=== PATIENT | female | born 1970 | race Caucasian/White ===

== ENCOUNTER → 2021-02-09 09:01 | Outpatient (CLI) | payer OTHER, SELFPAY ==
--- NOTE | ~2021-02-09 | MM_ITS ---
EXAMINATION: MM screening ace BI w jaymie HISTORY: Screening mammogram TECHNIQUE: Craniocaudal and mediolateral oblique 3-D tomosynthesis images were obtained and synthetic 2-D images were generated. CAD analysis was submitted and interpreted. COMPARISON: 10/15/2019, 07/09/2018, 04/06/2017 bilateral digital screening mammogram examinations BREAST PARENCHYMAL COMPOSITION: The breasts are almost entirely fatty. FINDINGS: There is no evidence of suspicious mass, calcification, or architectural distortion to sugg est malignancy in either breast. There has been no suspicious interval change. IMPRESSION: 1. No mammographic evidence of malignancy. 2. Recommend routine screening mammography in one year. BI-RADS Category 1: Negative Reviewed, dictated and finalized at location A.
== END ==
DX: Z12.31 Encounter for screening mammogram for malignant neoplasm of breast (principal)
CPT/HCPCS: 77063; 77067

== ENCOUNTER → 2022-02-15 10:44 | Outpatient (CLI) | payer OTHER, SELFPAY ==
--- NOTE | ~2022-02-15 | MM_ITS ---
EXAMINATION: MM screening ace BI w jaymie HISTORY: Screening mammogram TECHNIQUE: Craniocaudal and mediolateral oblique 3-D tomosynthesis images were obtained and synthetic 2-D images were generated. CAD analysis was submitted and interpreted. COMPARISON: 02/05/2021, 10/15/2019, 07/09/2018 bilateral screening mammogram examinations BREAST PARENCHYMAL COMPOSITION: The breasts are almost entirely fatty. FINDINGS: There is no evidence of suspicious mass, calcification, or architectural distortion to sugg est malignancy in either breast. There has been no suspicious interval change. IMPRESSION: 1. No mammographic evidence of malignancy. 2. Recommend routine screening mammography in one year. BI-RADS Category 1: Negative Reviewed, dictated and finalized at location A.
== END ==
PROVIDERS: PCP Family Medicine
DX: Z12.31 Encounter for screening mammogram for malignant neoplasm of breast (principal)
CPT/HCPCS: 77063; 77067

== ENCOUNTER → 2023-08-03 15:05 | Outpatient (CLI) | payer BC, SELFPAY ==
--- NOTE | ~2023-08-03 | MM_ITS ---
EXAMINATION: MM screening ace BI w jaymie HISTORY: Screening mammogram TECHNIQUE: Craniocaudal and mediolateral oblique 3-D tomosynthesis images were obtained and synthetic 2-D images were generated. CAD analysis was submitted and interpreted. COMPARISON: 02/15/2022, 02/09/2021, 10/15/2019 BREAST PARENCHYMAL COMPOSITION:The breasts are almost entirely fatty FINDINGS: No suspicious mass, calcification, or architectural distortion are identified in either gerardo ast to suggest malignancy. There has been no suspicious interval change. IMPRESSION: No mammographic evidence of malignancy. Recommend routine screening mammography in one year. BI-RADS Category 1: Negative Reviewed, dictated and finalized at location .
== END ==
DX: Z12.31 Encounter for screening mammogram for malignant neoplasm of breast (principal)
CPT/HCPCS: 77063; 77067

== ENCOUNTER 2024-08-08 15:06 | Outpatient (CLI) | payer BC, SELFPAY ==
--- NOTE | ~2024-08-08 | MM_ITS ---
EXAMINATION: MM screening ace BI w jaymie HISTORY: Screening TECHNIQUE: Craniocaudal and mediolateral oblique 3-D tomosynthesis images were obtained and synthetic 2-D images were generated. CAD analysis was submitted and interpreted. COMPARISON: Comparison to multiple prior studies sequentially, with oldest reviewed study dated 04/06. BREAST PARENCHYMAL COMPOSITION: . Not Dense: The breasts are almost entirely fatty. FINDINGS: There is no evidence of suspicious mass, calcification, or architectural distortion to sugg est malignancy in either breast. There has been no suspicious interval change. IMPRESSION: 1. No mammographic evidence of malignancy. 2. Recommend routine screening mammography in one year. BI-RADS Category 1: Negative Reviewed, dictated and finalized at location B.
== END 2024-08-08 15:07 | disposition home or self-care (01) ==
DX: Z12.31 Encounter for screening mammogram for malignant neoplasm of breast (principal)
CPT/HCPCS: 77063; 77067

== ENCOUNTER 2025-10-16 08:06 | Emergency (ER) | payer BC, SELFPAY ==
--- OUTSIDE RECORDS SUMMARY | 2025-10-16 08:12 | XMS_ITS | Clinical Summary ---
Author Organization [facility] Address [address] [place] [address] Care Team Providers Care Biostatistics Manager Name Role Phone Jaye Sahu MD Primary Care Provider [phone] Source Comments [facility],non-owned Affiliates and Associated Physician Practices is amultiple site organization consisting of ambulatory clinics and hospital sitesin [place], [place], [place] and [place]. This disclosure is being madepursuant to the Care Everywhere program and may not contain all information available regarding this patient. Last updated 18.[facility] Allergies No known active allergies Medications * Be aware that medications may not be up to date on this document. Alwaysverify current medications with the patient. Levonorgestrel-E thinyl Estrad (NORDETTE PO) 1 Tab once daily. No placebo pills except once a year Active methylPREDNISolo ne (MEDROL DOSEPAK) 4 MG tabletIndication s:Acute bronchitis, unspecified organism,Mild intermittent asthma, unspecified whether complicated (HCC) Take by mouth as directed 1 Each 7 Active Additional Information Patient not taking.Reported on 01/06/2019 benzonatate (TESSALON) 200 MG capsuleIndicatio ns:Acute bronchitis, unspecified organism Take 1 capsule by mouth 3 times daily as needed for Cough 30 capsule 7 Active Additional Information Patient not taking.Reported on 01/06/2019 albuterol HFA (PROVENTIL;TANVI ADRIANA;PROAIR) 108 (90 Base) MCG/ACT inhalerIndicatio ns:Medication refill Inhale 2 puffs by mouth every 6 hours as needed 1 Inhaler 9 Active Additional Information Patient not taking.Reported on 07/07/2019 phenazopyridine (PYRIDIUM) 200 MG tablet Take 1 tablet by mouth 3 times daily as needed 9 tablet 9 Active Active Problems Problem Noted Date Diagnosed Date Allergic rhinitis 01/06/2019 S/P laparoscopic cholecystectomy 12/16/2012 Alopecia 06/09/2002 Morbid obesity Family History Medical History Relation Name Comments Crohn's Disease Sister Relation Name Status Comments Sister Social History Tobacco Use Types Packs/Day Years Used Date Smoking Tobacco: Never Smokeless Tobacco: Never Comments No Sex and Gender Information Value Date Recorded Sex Assigned at Not on file Legal Sex Female 8:53 AM DIRECTOR OF ADULT EPILEPSY Gender Identity Not on file Sexual Orientation Not on file Last Filed Vital Signs Vital Sign Reading Time Taken Comments Blood Pressure 134/86 07/07/2019 12:10 PM CDT Pulse 133 07/07/2019 12:10 PM CDT Temperature 36.6 C (97.8 F) 07/07/2019 12:10 PM CDT Respiratory Rate 18 07/07/2019 12:10 PM CDT Oxygen Saturation 98% 07/07/2019 12:10 PM CDT Inhaled Oxygen Concentration - - Weight 111.1 kg (245 lb) 07/07/2019 12:10 PM CDT Height 165.1 cm (5' 5) 07/07/2019 12:10 PM CDT Body Mass Index 40.77 07/07/2019 12:10 PM CDT Plan of Treatment Health Maintenance Due Date Last Done Comments COLOGUARD (AGES 45-75) - COL ON CA SCREENING 1969 COLON MONITORING 1969 COLONOSCOPY - COLON CA SCREENING 1969 CT COLONOGRAPHY - COLON CA SCREENING 1969 Colorectal Cancer Screening 1969 FIT - COLON CA SCREENING 1969 FLEX SIG - COLON CA SCREENING 1969 MAMMOGRAM 1969 HIV SCREENING 1984 HEPATITIS C SCREENING 12/27/1987 DTAP/TDAP/TD VACCINES (1 - Tdap) 1988 HEPATITIS B VACCINE (1 of 3 - 19+ 3-dose series) 1988 LIPID TESTING 12/07/2017 12/07/2012 SCREENING FOR DIABETES 01/06/2019 3, 12/07/2012 PNEUMOCOCCAL VACCINE 50+ (1 of 1 - PCV) 01/01/2020 ZOSTER VACCINE (1 of 2) 01/01/2020 DEPRESSION SCREENING 10/19/2024 COVID-19 VACCINE (2024-2 6 season) 2025 INFLUENZA VACCINE (#1) 2025 HIB VACCINE Aged Out No longer eligi ble based on patient's age to complete this topic HPV VACCINE Aged Out No longer eligi ble based on patient's age to complete this topic MENINGOCOCCAL (Group B) VACCINE SHARED DECISION-MAKING Aged Out No longer eligible based on patient's age to complete this topic MENINGOCOCCAL GROUPS A/C/Y/W VACCINE Aged Out No longer eligible b ased on patient's age to complete this topic Procedures Procedure Name Priority Date/Time Associated Diagnosis Comments COMPREHENSIVE METABOLIC PANEL Routine 01/06/2013 5:30 PM CDT Morbid obesity [ICD-9-CM] LIPID PROFILE Routine 12/07/2012 9:05 AM DIRECTOR OF ADULT EPILEPSY from Last 3 Months or Most Recently Relevant to Health Maintenance Results * (ABNORMAL) COMPREHENSIVE METABOLIC PANEL (01/06/2013 5:30 PM CDT) Glucose 149(H) 74 - 106 mg/dL 01/06/2013 7:26 PM CDT [facility] Sodium 140 136 - 145 mmol/L 01/06/2013 7:26 PM CDT [facility] Potassium 3.8 3.5 - 5.1 mmol/L 01/06/2013 7:26 PM CDT [facility] Chloride 105 98 - 107 mmol/L 01/06/2013 7:26 PM CDT [facility] CO2 24 22 - 31 mmol/L 01/06/2013 7:26 PM CDT [facility] Calcium 9.1 8.5 - 10.1 mg/dL 01/06/2013 7:26 PM CDT [facility] Anion Gap 11 5 - 15 mmol/L 01/06/2013 7:26 PM CDT [facility] BUN 11 7 - 21 mg/dL 01/06/2013 7:26 PM CDT [facility] Creatinine 0.82 0.50 - 1.30 mg/dL 01/06/2013 7:26 PM CDT [facility] eGFR by MDRD >60 >60 ml/min/1.7 3m2 01/06/2013 7:26 PM T [facility] eGFR by MDRD >60 >60 ml/min/1.7 3m2 01/06/2013 7:26 PM CDT [facility] Alkaline Phosphatase 91 38 - 126 U/L 01/06/2013 7:26 PM T [facility] ALT 26 12 - 78 U/L 01/06/2013 7:26 PM T [facility] AST 8 5 - 40 U/L 01/06/2013 7:26 PM CDT [facility] Protein Total 6.6 6.4 - 8.2 gm/dL 01/06/2013 7:26 PM T [facility] Albumin 3.9 3.4 - 5.0 gm/dL 01/06/2013 7:26 PM T [facility] Bilirubin Total 0.4 0.2 - 1.0 mg/dL 01/06/2013 7:26 PM T [facility] Blood specimen (specimen) BLOOD SPECIMEN / Unknown 01/06/2013 5:30 PM CDT 01/06/2013 6:49 PM CDT Leisa Valiente MD LAB - CHEMISTRY ORDERABLE S Final Result [facility] [address] [place] [address] * (ABNORMAL) LIPID PROFILE (12/07/2012 9:05 AM DIRECTOR OF ADULT EPILEPSY) Cholesterol 240(H) <200 mg/dL [facility] Triglycerides 185 10 - 210 mg/dL [facility] HDL Cholesterol 50 >40 mg/dL [facility] LDL Calculated 153 mg/dL [facility] Chol HDL Ratio 4.80 [facility] Comment Lipid [facility] Comment: Risk Classification HDL CHOL LDL CHOL TOTAL CHOL According to NCEP (mg/dl) (mg/dL) (mg/dl) Desirable >40 <130 < 200 Borderline/High - 130-159 200-239 High - >159 > 239 The total cholesterol to HDL cholesterol ratio may be used to predict risk for coronary heart disease in untreated patients according to data reported from the [place] Study by Anson Bautista M.D. The predictive value in patients over 60 years of age is uncertain. Risk TOTAL CHOL/HDL RATIO MEN WOMEN 1/2 Average 3.43 3.27 Average 4.97 4.44 2X Average 9.55 7.05 3X Average 23.39 11.04 In Coronary Artery Disease patients, in whom nonpharmacological therapy has failed, the AHA recommends that drug therapy should be prescribed to lower LDL cholesterol to <100mg/dL. Drug therapy may be instituted in patients with HDL <35mg/dL. The reported LDL is a calculated result. For a more precise measurement, a direct LDL test is available, as necessary. BLOOD SPECIMEN / Unknown 12/07/2012 9:05 AM DIRECTOR OF ADULT EPILEPSY 12/07/2012 9:42 AM DIRECTOR OF ADULT EPILEPSY us Rhoda Lubin MD LAB - CHEMISTRY ORDERABLES Fin al Result Performing Organization Address City/State/[facility] Co de Phone Number [facility] [address] [place] [address] from Last 3 Months or Most Recently Relevant to Health Maintenance Insurance Care Teams Biostatistics Manager Relationship Specialty Start Date End Date Jaye Sahu MD [address] [place] [address] PCP - General Endocrinology 12/20/12
--- OUTSIDE RECORDS SUMMARY | 2025-10-16 08:12 | XMS_ITS | Clinical Summary ---
Author Organization [facility] Address [address] [place] [address] Care Team Providers Care Vending Machine Collector Name Role Phone Meera Naylor Primary Care Provider [phone] Allergies No known active allergies Medications levonorgestrel- ethinyl estradiol 0.1-20 MG-MCG tablet 1 tablet daily. Acti ve meclizine 12.5 MG tablet Take 12.5 mg by mouth 3 (three) times daily as needed. Active clobetasol 0.05 % ointment APPLY THIN LAYER EXTERNALLY TO THE AFFECTED AREA TWICE DAILY 1 Active albuterol sulfate HFA 108 (90 Base) MCG/ACT inhalerIndicati ons:Acute recurrent maxillary sinusitis Inhale 2 puffs into the lungs every 6 (six) hours as needed. 8 g 3 1 Active budesonide-form oterol (SYMBICORT) 160-4.5 MCG/ACT inhalerIndicati ons:COVID-19 virus infection Inhale 2 puffs into the lungs 2 (two) times daily. 10.2 g 2 Active Active Problems Problem Noted Date Diagnosed Date Mild intermittent asthma without complication Allergic rhinitis 01/06/2019 S/P laparoscopic cholecystectomy 12/16/2012 Encounters Date Type Department Care Team Description 08/09/2025 Scan [facility] Scanned, [facility] from Last 3 Months Immunizations Immunization Administration Dates Next Due PFIZER COVID-19 (ORIGINAL FO RMULATION, PURPLE CAP) mRNA, LNP-S, PF, 30 MCG/0.3 ML DOSE 12/20/2020,11/29/2020 Tdap (Historical Only-select from magnify glass) 03/08/2020 Family History Medical History Relation Comments Heart Disease Father Hypertension Father Arthritis Mother Relation Status Comments Father Mother Social History Tobacco Use Types Packs/Day Years Used Date Smoking Tobacco: Never Smokeless Tobacco: Never Tobacco Cessation:Counseling Given: No Comments No Sex and Gender Information Value Date Recorded Sex Assigned at Not on file Legal Sex Female 3:47 PM CDT Gender Identity Not on file Sexual Orientation Not on file Last Filed Vital Signs Vital Sign Reading Time Taken Comments Blood Pressure 126/84 01/01/2021 2:38 PM CDT Pulse 108 01/01/2021 2:38 PM CDT Temperature 36.7 C (98 F) 01/01/2021 2:38 PM CDT Respiratory Rate 17 01/01/2021 2:38 PM CDT Oxygen Saturation 97% 01/01/2021 2:38 PM CDT Inhaled Oxygen Concentration - - Weight 126.3 kg (278 lb 6.4 oz) 01/01/2021 2:38 PM CDT Height 165.1 cm (5' 5) 03/08/2020 8:27 AM CDT Body Mass Index 46.33 03/08/2020 8:27 AM CDT Plan of Treatment Health Maintenance Due Date Last Done Comments Cervical Cancer Screening Pa p Smear (Age 30 to 64) Every 3 Years 1969 Hepatitis C 01/01/1988 Hepatitis B Vaccines (1 of 3 - 19+ 3-dose series) 1988 Pneumococcal Vaccine: 50+ Years (1 of 2 - PCV) 1988 Cervical Cancer Screening Pa p with HPV Testing (Age 30 to 64) Every 5 Years 01/01/2000 Cervical Cancer Screening wi th HPV 01/01/2000 Zoster Vaccines (1 of 2) 01/01/2020 Annual Physical 03/08/2021 03/08/2020 Mammogram Screening 02/16/2024 02/15/2022, 02/09/2021 PHQ-2 (Physician Chitina) 10/19/2024 COVID-19 Vaccine (2024-2 6 season) 2025 06/21/2021, 12/20/2020, 11/29/2020 Influenza Adult (#1) 2025 Colorectal Cancer Screening FIT-DNA (3 Years) 07/16/2027 07/16/2024, 03/31/2020 DTaP, Tdap and Td Vaccines ( 2 - Td or Tdap) 03/08/2030 03/08/2020 Hepatitis A Vaccines Aged Out No long er eligible based on patient's age to complete this topic Meningococcal B Vaccine Aged Out No l onger eligible based on patient's age to complete this topic Meningococcal Vaccine Aged Out No akua quin[place] eligible based on patient's age to complete this topic RSV Immunizations Under 20 Months Aged Out No longer eligible b ased on patient's age to complete this topic Procedures Procedure Name Priority Date/Time Associated Diagnosis Comments COLOGUARD (EXACT SCIENCE) Routine 07/16/2024 10:40 AM CDT Screening for colon cancer MAMMOGRAM GENERIC (SCAN ORDER) 02/15/2022 from Last 3 Months or Most Recently Relevant to Health Maintenance Results * COLOGUARD (EXACT SCIENCE) (07/16/2024 10:40 AM CDT) COLOGUARD RESULT Negative Negative [facility] (CLIA #:[id number]) Comment: NEGATIVE TEST RESULT. A negative Cologuard result indicates a low likelihood that a colorectal cancer (CRC) or advanced adenoma (adenomatous polyps with more advanced pre-malignant features) is present. The chance that a person with a negative Cologuard test has a colorectal cancer is less than 1 in 1500 (negative predictive value >99.9%) or has an advanced adenoma is less than 5.3% (negative predictive value 94.7%). These data are based on a prospective cross-sectional study of 10,000 individuals at average risk for colorectal cancer who were screened with both Cologuard and colonoscopy. (Lily Delgado al, N Engl J Med 2014;370(14):8400-8808) The normal value (reference range) for this assay is negative. COLOGUARD RE-SCREENING RECOMMENDATION: Periodic colorectal cancer screening is an important part of preventive healthcare for asymptomatic individuals at average risk for colorectal cancer. Following a negative Cologuard result, the [place] [employer] and U.S. Multi-Society Task Force screening guidelines recommend a Cologuard re-screening interval of 3 years. References: [place] [employer] Guideline for Colorectal Cancer Screening: https://www.cancer.org/cancer/tndyq-hwadee-wyilmf/dastyvaaw-aiblkzbjd-sepdltn/ac s-rec ommendations.html.; Devin DK, Noe GIRALDO, Tiana ELDRIDGE, Colorectal Cancer Screening: Recommendations for Physicians and Patients from the U.S. Multi-Society Task Force on Colorectal Cancer Screening , Am J Gastroenterology 2017; 112:5825-1945. TEST DESCRIPTION: Composite algorithmic analysis of stool DNA-biomarkers with hemoglobin immunoassay. Quantitative values of individual biomarkers are not reportable and are not associated with individual biomarker result reference ranges. Cologuard is intended for colorectal cancer screening of adults of either sex, 45 years or older, who are at average-risk for colorectal cancer (CRC). Cologuard has been approved for use by the U.S. FDA. The performance of Cologuard was established in a cross sectional study of average-risk adults aged 50-84. Cologuard performance in patients ages 45 to 49 years was estimated by sub-group analysis of near-age groups. Colonoscopies performed for a positive result may find as the most clinically significant lesion: colorectal cancer [4.0%], advanced adenoma (including sessile serrated polyps greater than or equal to 1cm diameter) [20%] or non- advanced adenoma [31%]; or no colorectal neoplasia [45%]. These estimates are derived from a prospective cross-sectional screening study of 10,000 individuals at average risk for colorectal cancer who were screened with both Cologuard and colonoscopy. (Lily Delgado al, N Engl J Med 2014;370(14):8053-2682.) Cologuard may produce a false negative or false positive result (no colorectal cancer or precancerous polyp present at colonoscopy follow up). A negative Cologuard test result does not guarantee the absence of CRC or advanced adenoma (pre-cancer). The current Cologuard screening interval is every 3 years. ([place] [employer] and U.S. Multi-Society Task Force). Cologuard performance data in a 10,000 patient pivotal study using colonoscopy as the reference method can be accessed at the following location: www.exactlabs.com/results. Additional description of the Cologuard test process, warnings and precautions can be found at www.cologuard.com. STOOL STOOL SPECIMEN / Unknown 07/16/2024 10:40 AM CDT 07/17/2024 5:50 PM CDT Meera Naylor DO BODY FLUIDS AND STOOLS ORDERA BLES Final Result [employer] [facility] [address] [place] [address], [employer] (CLIA #:[id number]) [address] [place] [address] * MAMMOGRAM GENERIC (02/15/2022) Anatomical Region Laterality Modality Other 02/15/2022 Narrative 02/15/2022 Ordered by an unspecified provider. us Documents Scanned SCANNING Final Result from Last 3 Months or Most Recently Relevant to Health Maintenance Insurance [facility] Care Teams Vending Machine Collector Relationship Specialty Start Date End Date Meera Naylor DO [address] [place] [address] PCP - General FAMILY PRACTICE 03/08/20
--- OUTSIDE RECORDS SUMMARY | 2025-10-16 08:12 | XMS_ITS | Clinical Summary ---
Author Organization [address] Address [address] [place] [id number] Care Team Providers Care Fibrous Plasterer Name Role Phone No, Physician Primary Care Provider [phone] Allergies No known active allergies Medications levonorgestreL- ethinyl estrad (LEVORA) 0.15-0.03 mg per tablet 1 tablet daily Acti ve albuterol HFA (PROVENTIL HFA,VENTOLIN HFA,PROAIR HFA) 90 mcg/actuation inhaler Inhale 2 puffs every 6 (six) hours as needed 9 Active predniSONE (DELTASONE) 10 mg tablet Take 5 tabs (50mg) daily for 2 days, then take 4 tabs (40mg) daily for 2 days. Continue to decrease by 1 tab (10mg) every 2 days until gone. 30 tablet 3 Active albuterol HFA (PROVENTIL HFA,VENTOLIN HFA,PROAIR HFA) 90 mcg/actuation inhaler Inhale 2 puffs every 6 (six) hours as needed for wheezing or shortness of breath 1 each 3 Active Active Problems No known active problems Social History Tobacco Use Types Packs/Day Years Used Date Smoking Tobacco: Never Assessed Comments No Sex and Gender Information Value Date Recorded Sex Assigned at Not on file Legal Sex Female 3:27 PM LEGAL RECEPTIONIST Gender Identity Not on file Sexual Orientation Not on file Last Filed Vital Signs Vital Sign Reading Time Taken Comments Blood Pressure 136/84 09/17/2023 11:06 AM LEGAL RECEPTIONIST Pulse 93 09/17/2023 11:06 AM LEGAL RECEPTIONIST Temperature 36.8 C (98.2 F) 09/17/2023 11:06 AM LEGAL RECEPTIONIST Respiratory Rate 16 09/17/2023 11:06 AM LEGAL RECEPTIONIST Oxygen Saturation 99% 09/17/2023 11:06 AM LEGAL RECEPTIONIST Inhaled Oxygen Concentration - - Weight 113.4 kg (250 lb) 09/17/2023 11:06 AM LEGAL RECEPTIONIST Height 165.1 cm (5' 5) 09/17/2023 11:06 AM LEGAL RECEPTIONIST Body Mass Index 41.6 09/17/2023 11:06 AM LEGAL RECEPTIONIST Plan of Treatment Health Maintenance Due Date Last Done Comments Breast Cancer Screening-Mammogram 1969 Cervical Cancer Screening 1969 Colon Cancer Screening-Colonoscopy 1969 Depression Screening 1969 Hepatitis C Screening 1969 Hepatitis B Screening 01/01/1988 Regular Well Visit/Exam 18-64 01/01/1988 Pneumococcal vaccine <65 (1 of 2 - PCV) 1988 Zoster Vaccine (1 of 2) 01/01/2020 Covid-19 Vaccine (5 - 2024-2 6 season) 2025 08/21/2022, 06/21/2021, 12/20/2020, Additional history exists Influenza Vaccine (#1) 2025 DTaP/Tdap/Td Vaccine (2 - Td or Tdap) 03/08/2030 03/08/2020 Insurance [employer] [facility] Care Teams Fibrous Plasterer Relationship Specialty Start Date End Date No, Physician PCP - General 04/07/23
--- OUTSIDE RECORDS SUMMARY | 2025-10-16 08:12 | XMS_ITS | Encounter Summary ---
Author Organization [facility] Health Address [address] [place] [address] Care Team Providers Care Hostage Negotiator Name Role Phone Jaye Sahu MD Primary Care Provider [phone] Encounter Details Date Type Department Care Team (Late st Contact Info) Description 12/07/2012 [facility] Outpatient Visit [facility] [address] [facility] [place], [place] [id number] Jameel Lubin MD [address] [place] [address] Social History Tobacco Use Types Packs/Day Years Used Date Smoking Tobacco: Never Assessed Comments Unknown Sex and Gender Information Value Date Recorded Sex Assigned at Not on file Legal Sex Female 8:53 AM NASCAR PIT CREW PERSON Gender Identity Not on file Sexual Orientation Not on file documented as of this encounter Plan of Treatment Not on file documented as of this encounter Visit Diagnoses Not on filedocumented in this encounter Care Teams Hostage Negotiator Relationship Specialty Start Date End Date Jaye Sahu MD [address] [place] [id number] PCP - General Endocrinology 12/20/12 documented as of this encounter
--- OUTSIDE RECORDS SUMMARY | 2025-10-16 08:12 | XMS_ITS | Encounter Summary ---
Author Organization [facility] Address [address] [place] [address] Care Team Providers Care Log Cooker Name Role Phone Meera Naylor DO Primary Care Provider [phone] Encounter Details Date Type Department Care Team (Late st Contact Info) Description 03/06/2025 MyChart Message Enc [facility] Family Medicine - [place] [address], [address] [place] [id number] Meera Naylor DO [address] [place], [place] [phone] Schedule an Appointment Social History Tobacco Use Types Packs/Day Years [...] on filedocumented in this encounter Care Teams Log Cooker Relationship Specialty Start Date End Date Meera Naylor DO [address] [place], [place] [phone] PCP - General FAMILY PRACTICE 03/08/20 documented as of this encounter
--- OUTSIDE RECORDS SUMMARY | 2025-10-16 08:12 | XMS_ITS | Encounter Summary ---
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 Name Role Phone Unavailable Primary Care Provider Unavailabl e Encounter Details Date Type Department Care Team (Late st Contact Info) Description 10/17/2022 Lab Requisition [facility] [address] [place] [address] Immanuel Rice MD [address] [place] [address] [address] [place] [address] Encounter for screening for COVID-19 Social History Tobacco Use Types Packs/Day Years Used Date Smoking Tobacco: Never Assessed Comments Unknown Sex and Gender Information Value Date Recorded Sex Assigned at Not on file Legal Sex Female 1:00 PM PROGRAM ARCHITECT Gender Identity Not on file Sexual Orientation Not on file documented as of this encounter Plan of Treatment Not on file documented as of this encounter Procedures Procedure Name Priority Date/Time Associated Diagnosis Comments SARS-COV-2 BY MOLECULAR Routine 10/17/2022 10:25 AM PROGRAM ARCHITECT Encounter for screening for COVID-19 documented in this encounter Results * SARS-COV-2 BY MOLECULAR (10/17/2022 10:25 AM PROGRAM ARCHITECT) SARSCOV2 NOT DETECTED (Referen ce Range for this test is Not Detected ) [facility] THERMOFISHER FAST DX 10/18/2022 11:09 PM PROGRAM ARCHITECT [facility] Comment:This test was perfor med by a RT-PCR method. Other Non-Phlebotomy Collection / Unknown 10/17/2022 10:25 AM PROGRAM ARCHITECT 10/17/2022 4:03 PM PROGRAM ARCHITECT Narrative [facility] - 10/18/2022 11:09 PM PROGRAM ARCHITECT Authorized Fact Sheets about this test for providers and patients are available at: https://www.fda.gov/medical-devices/anftsoisx-tdsjdqvvit-gmjonnn-devices/emergen cy-us e-authorizations us Immanuel Rice MD MICROBIOLOGY - GENERAL ORDERAB LES Final Result [facility] [address] [place] [address], [place] documented in this encounter Visit Diagnoses Diagnosis Encounter for screening for COVID-19 documented in this encounter Additional Health Concerns Infection Onset Date Last Indicated Resolved Time COVID - 19 10/17/2022 10/23/2022 11/02/2022 12:1 7 AM PROGRAM ARCHITECT documented as of this encounter
--- OUTSIDE RECORDS SUMMARY | 2025-10-16 08:12 | XMS_ITS | Clinical Summary ---
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 Gender Identity Not on file Sexual Orientation Not on file Plan of Treatment Health Maintenance Due Date Last Done Comments Hepatitis C Virus (HCV) Screening 1969 Hepatitis B Immunization (1 of 3 - 19+ 3-dose series) 1988 Pap Smear 1990 Cervical Cancer Screening (CCS) 01/01/2000 HPV/Cotest 01/01/2000 Cologuard 2014 Colonoscopy 2014 Colorectal Cancer Screening 2014 Immunochemical Fecal Occult Blood 2014 Pneumococcal Immunization (5 0+ years) (1 of 1 - PCV) 01/01/2020 Zoster Immunization (1 of 2) 01/01/2020 Influenza Immunization (#1) 2025 SARS-COV-2 Immunization (2024- season) 2025 06/21/2021, 12/20/2020, 11/29/2020 Respiratory Syncytial Virus (RSV) Immunization (Adult) (1 - 1-dose 75+ series) 2044 DTaP/Tdap/Td Immunization Discontinued 03/08/2020 TdaP Immunization Completed 03/08/2020 Human Papillomavirus (HPV) Immunization (No Doses Required) Completed Meningococcal Immunization (ACWY) Aged Out No longer eligible based on patient's age to complete this topic Rotavirus Immunization Aged Out No lo nger eligible based on patient's age to complete this topic
--- OUTSIDE RECORDS SUMMARY | 2025-10-16 08:12 | XMS_ITS | Encounter Summary ---
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 Name Role Phone Unavailable Primary Care Provider Unavailabl e Encounter Details Date Type Department Care Team (Late st Contact Info) Description 10/23/2022 Lab Requisition [facility] [address] [place] [address] Immanuel Rice MD [address] [place] [address] [address] [place] [address] Encounter for screening for COVID-19 Social History Tobacco Use Types Packs/Day Years Used Date Smoking Tobacco: Never Assessed Comments Unknown Sex and Gender Information Value Date Recorded Sex Assigned at Not on file Legal Sex Female 1:00 PM SEAT TRIMMER Gender Identity Not on file Sexual Orientation Not on file documented as of this encounter Plan of Treatment Not on file documented as of this encounter Procedures Procedure Name Priority Date/Time Associated Diagnosis Comments SARS-COV-2 BY MOLECULAR Routine 10/23/2022 1:15 PM SEAT TRIMMER Encounter for screening for COVID-19 documented in this encounter Results * SARS-COV-2 BY MOLECULAR (10/23/2022 1:15 PM SEAT TRIMMER) SARSCOV2 NOT DETECTED (Referen ce Range for this test is Not Detected ) [facility] THERMOFISHER FAST DX 10/24/2022 8:48 PM SEAT TRIMMER [facility] Comment:This test was perfor med by a RT-PCR method. Other Non-Phlebotomy Collection / Unknown 10/23/2022 1:15 PM SEAT TRIMMER 10/23/2022 5:05 PM SEAT TRIMMER Narrative [facility] - 10/24/2022 8:48 PM SEAT TRIMMER Authorized Fact Sheets about this test for providers and patients are available at: https://www.fda.gov/medical-devices/bhcfpspid-qfffgqugqr-bfwxxjb-devices/emergen cy-us e-authorizations us Immanuel Rice MD MICROBIOLOGY - GENERAL ORDERAB LES Final Result [facility] [address] [place] [address], documented in this encounter Visit Diagnoses Diagnosis Encounter for screening for COVID-19 documented in this encounter Additional Health Concerns Infection Onset Date Last Indicated Resolved Time COVID - 19 10/17/2022 10/23/2022 11/02/2022 12:1 7 AM SEAT TRIMMER documented as of this encounter
[2025-10-16 08:20] VITALS: BP 137/48; PULSE 87; RESP 16; TEMP 36.3; O2SAT 97
--- NOTE | 2025-10-16 08:29 | ED_ITS ---
HPI - URI/Sore Throat General Chief Complaint: Upper Respiratory Infection Stated Complaint: Flu Like Time Seen by Provider: 10/16/25 08:22 Source: patient and RN notes reviewed Mode of arrival: ambulatory Limitations: no limitations History of Present Illness HPI Narrative: 54-year-old female patient with history of asthma presents today with a 4 day history of cough, sneezing, body aches, bilateral ear pressure, chest congestion, occasional wheezing. Denies sore throat, fever, shortness of breath, known sick contacts. She has tried [place] Plus and her albuterol inhaler with some improvement. She has been using her albuterol inhaler 6-8 times per day. Last use was just prior to arrival. Related Data Home Medications ?Medication ?Instructions ?Recorded ?Confirmed ?Last Taken ?Type budesonide-formoterol HFA 160 g inhalation 01/19/23 U nknown History mcg-4.5 mcg/actuation aerosol inhaler (Symbicort) hydroxyzine HCl 25 mg tablet 25 mg PO 01/19/23 Unknow n History levonorgestrel 0.15 mg-ethinyl 1 tablet PO 01/19/23 U nknown History estradiol 0.03 mg tablet (Kurvelo (28)) triamcinolone acetonide 0.1 % 1 applic topical 3 Unknown History topical cream valacyclovir 1 gram tablet 1,000 mg PO 01/19/23 Unkno wn History Allergies Allergy/AdvReac Type Severity Reaction Status Date / Time No Known Allergies Allergy Verified 10/16/25 08:09 [facility] Surgical History Surgical History History of cholecystectomy History of Family History Family History Father Heart disease Social History Social History Smoking status: Never smoker Alcohol intake: never Substance use: never Substance use type: does not use Lack of Transportation: No Lack of Food: Never True Current Housing: I Have Housing Concerned About Future Housing: No Difficulty Paying Gas/Electric Bills: No Difficulty Paying for Meds: No Currently Unemployed: No Education: Associate Degree Difficulty w/ Childcare or Family Care: No Comments At time of signature, I have reviewed and agree with nursing past medical, surgical, social and family history unless otherwise noted. Please see nursing chart for further information. There is no relevant family history pertinent to the presenting complaint Exam Narrative: GENERAL: Mildly ill-appearing, well-nourished, and in no acute distress. HEAD: Normocephalic, atraumatic. EYES: EOMI. No redness or drainage. Conjunctivae normal. ENT: Mucous membranes pink and moist. Nares clear. No rhinorrhea. Bilateral middle ear effusions without evidence of bacterial infection. Throat normal. Uvula midline. NECK: Normal AROM. Supple. No lymphadenopathy. CHEST: No respiratory distress. Clear to auscultation. HEART: Regular rate and rhythm. No murmur appreciated. EXTREMITIES: Normal range of motion. No edema. SKIN: Warm, dry, no rash. Capillary refill normal. Normal skin turgor. NEURO: No focal deficits. Alert and oriented x3. Gait steady. PSYCH: Normal affect. No signs of depression or anxiety. Course Course Level of Care: Express Care Visit Vital Signs Vital signs: Vital Signs Temperature 97.4 F L 10/16/25 08:20 Pulse Rate 87 10/16/25 08:20 Respiratory Rate 16 10/16/25 08:20 Blood Pressure 137/48 L 10/16/25 08:20 Pulse Oximetry 97 10/16/25 08:20 Oxygen Delivery Room Air 10/16/25 08:20 Temperature 97.4 F L 10/16/25 08:20 Pulse Rate 87 10/16/25 08:20 Respiratory Rate 16 10/16/25 08:20 Blood Pressure 137/48 L 10/16/25 08:20 Pulse Oximetry 97 10/16/25 08:20 Oxygen Delivery Room Air 10/16/25 08:20 Reviewed MDM MDM Narrative Medical decision making narrative: 54-year-old female patient with history of asthma presents today with a 4 day history of cough, sneezing, body aches, bilateral ear pressure, chest congestion, occasional wheezing. Denies sore throat, fever, shortness of breath, known sick contacts. She has tried [place] Plus and her albuterol inhaler with some improvement. She has been using her albuterol inhaler 6-8 times per day. Last use was just prior to arrival. Upon exam, patient is mildly ill appearing bilateral middle effusions. Lung auscultation. COVID and influenza negative. Symptoms likely viral in etiology. Discussed [id number] medication use and duration of illness. Patient will be prescribed a course of prednisone for her wheezing and asthma exacerbation. Will also refill her rescue inhaler. Anticipatory guidance given. ED precautions given. Patient agrees with plan. Vital signs stable. Differential Diagnosis Differential Diagnosis: COVID-19, influenza, URI, asthma exacerbation, Lab Data MDM Lab Attestation statement: I personally reviewed the patient's lab results. Lab results narrative: COVID negative, influenza negative Critical Care Time Critical Care Time Critical Care Time: No Discharge Plan Discharge Clinical Impression: Upper respiratory infection Qualifiers: URI type: unspecified URI Qualified Code(s): J06.9 - Acute upper respiratory infection, unspecified Patient Disposition: Home Condition: Stable Instructions: Upper Respiratory Infection (DC) Additional Instructions: Your influenza and COVID tests are negative today. Your Symptoms are likely due to a viral illness, which is not treated with antibiotics. Virus symptoms can last for up to 7-10days. Take or ibuprofen for pain or fever. Consider Mucinex for chest congestion. Take the prednisone as prescribed. Rest and stay hydrated. Follow up with your PCP in 5 days if symptoms are not improving, or sooner if symptoms worsen. Go to the ER immediately if you develop shortness of breath, difficulty swallowing, or any other concerning symptoms. Patient Language: Telugu Prescriptions: New prednisone 20 mg tablet 40 mg PO DAILY 5 Days Qty: 10 0RF albuterol sulfate 90 mcg/actuation HFA aerosol inhaler 2 inh inhalation Q4-6H PRN (Reason: shortness of breath or wheezing) Qty: 8.5 0RF No Action valacyclovir 1 gram tablet 1,000 mg PO levonorgestrel-ethinyl estrad [Kurvelo (28)] 0.15-0.03 mg tablet 1 tablet PO hydroxyzine HCl 25 mg tablet 25 mg PO budesonide-formoterol [Symbicort] 160-4.5 mcg/actuation HFA aerosol inhaler inhalation triamcinolone acetonide 0.1 % cream 1 applic topical Follow-up/Referrals: Dayday,Meera Wu MD [Primary Care Provider] Stand Alone Forms: Work/School Release IP Time of Disposition: 08:41
[2025-10-16 08:39] LABS: EDCOVIDSCREEN Negative (Negative); EDINFLUASCREEN Negative (Negative); EDINFLUBSCREEN Negative (Negative)
== END 2025-10-16 08:44 | disposition home or self-care (01) ==
PROVIDERS: Emergency Provider Nurse Practitioner; PCP Family Medicine
DX: J06.9 Acute upper respiratory infection, unspecified (principal); Z20.822 Contact with and (suspected) exposure to COVID-19; Z90.49 Acquired absence of other specified parts of digestive tract
CPT/HCPCS: 87426; 87804; 99213; G0463